=== PATIENT | male | born 1965 | race Caucasian/White ===

== ENCOUNTER → 2018-06-27 19:21 | Outpatient (CLI) | payer OTHER | END | disposition home or self-care (01) | LOC: D.CT 19:21 | DX: K52.9 Noninfective gastroenteritis and colitis, unspecified (principal) ==

== ENCOUNTER → 2018-07-01 18:28 | Outpatient (CLI) | payer OTHER | END | disposition home or self-care (01) | LOC: D.LABREF 18:28 | DX: R31.9 Hematuria, unspecified (principal) ==

== ENCOUNTER → 2018-08-12 14:03 | Outpatient (CLI) | payer OTHER | END | disposition home or self-care (01) | LOC: D.MRI 14:03 | PROVIDERS: ATTEND Orthopaedic Surgery | DX: M87.059 Idiopathic aseptic necrosis of unspecified femur (principal) ==

== ENCOUNTER 2018-09-06 07:50 | Day surgery (SDC) | payer OTHER ==
[2018-09-01 13:21] LABS: HEMATOCRIT 43.8 % (42.0-54.0); HEMOGLOBIN 15.8 g/dL (13.5-17.5); MCH 33.5 pg (26.0-34.0); MCHC 36.1 g/dL (31.0-37.0); MCV 92.8 fL (80.0-100.0); MEAN PLATELET VOLUME 10.1 fL (7.4-10.4); RBC 4.72 10x6/uL (4.20-6.10); WBC 8.2 10x3/uL (4.8-10.8)
[~2018-09-06] VITALS: Ht 175.3 cm; Wt 81.6 kg
[~2018-09-06 07:50] MED LIST: LIPITOR20 MG PO; LOSARTAN/HCT TAB 100 PO; XANAX0.5 MG PO
[2018-09-06 08:47] VITALS: BP 105/65; Ht 175.3 cm; Wt 81.6 kg
[2018-09-06] MEDS ORDERED: PERCOCET 5-3251 TAB PO (12:40)
[2018-09-06] MEDS ORDERED: BAYER CHEWABLE81 MG PO (12:41)
--- NOTE | 2018-09-06 13:25 | NUR ---
PT ARRIVED TO UNIT VIA STRETCHER AT 1310. STATES HAVING PAIN OF /. DENIES NEEDS AT THIS TIME. WILL CONTINUE TO MONITOR.
--- NOTE | 2018-09-06 14:14 | OP ---
PATIENT NAME: YUMIKO LINN MEDICAL RECORD: [id number] :67 LOCATION:[facility] ADMISSION DATE: SURGEON: FREDO ROBERTS DO DATE OF OPERATION: 09/06/2018 PROCEDURE PERFORMED: Right hip femoral head core decompression with injection of BioCure and platelet rich plasma and bone marrow aspirate from the right iliac crest. PREOPERATIVE DIAGNOSIS: Avascular necrosis of the right femoral head. POSTOPERATIVE DIAGNOSIS: Avascular necrosis of the right femoral head. INDICATIONS: Mr. Linn is a 53-year-old male who presented to my office after an incidental finding of AVN on his bilateral hips after having a CT of his pelvis and abdomen. He had had hip pain for some time and did not why. He was a smoker for a long time and is likely the cause, but this is unknown to be the exact source. He had no other risk factors for it. I informed him that we could do an MRI and see how bad it was. It did not appear to be collapsed on the CT. MRI was done and indeed was not collapsed. The right had a slightly larger lesion than the left, it was 2.7 x 3 cm and he was aware that, wanted to do the right one first. I told him that we would aspirate from his iliac crest on the right and that would be painful. I told him the cord compression too and he would be nonweightbearing for a couple of weeks with the hopes that it would regenerate bone in his femoral head. He was okay with that including the risk of infection, bleeding, damage to nerve and vessel, and blood clots and even . He signed the consent. SURGEON: Fredo Roberts DO FARM MACHINE OPERATOR: Darian Caldera, certified first assistant manager. Darian assisted with closing and throughout the procedure. DESCRIPTION OF PROCEDURE: The patient was taken to the operative suite and after given a block by anesthesia in the preoperative area, the patient was put to sleep on the regular table and given general anesthetic. LMA was placed. Two grams Ancef were given to the patient. He was then placed on the [place] table and positioned. Once positioned, the right hip was prepped and draped in sterile fashion. A timeout was performed, everyone was in agreement with the correct side, site, patient and procedure. A small incision was then made over the right iliac crest and a core Jamshidi needle was used into the iliac crest and aspirated 60 cc of bone marrow. This was passed off and spun down with a BioCure to PRP, 5 cc were obtained from each of the spin down. During that time, the hip was x-rayed in AP and lateral and marked to get into the necrotic spot of the femoral head. Once this was confirmed on AP and lateral, a small incision was made on the lateral aspect of the femur and the 2.4 drill was put up into the femoral head right where the necrotic area was and then 4.5 reamer acorn was used over that to go up into the spot. Then, a 6.0 trocar was malleted into that site. This was confirmed on AP and lateral to be in good position. Once this was in good position, the injection was inserted and through the trocar, a plunger was used to force it into the space that had been created. This was done several times as some of the product came out of the trocar, which was caught in a specimen cup and redrawn up and reaspirated. Once the total contents of 10 cc was injected in, then the plunger went through a final time without any drawback. The trocar was removed. The 2 incision sites OPERATIVE REPORT [id number] TYLORYUMIKO were then injected with 1% lidocaine with epinephrine 10 mL in each site. The incisions were closed over the iliac crest with 2-0 Vicryl and then 4-0 Monocryl ran on the skin and then on the small incision over the lateral hip, 4-0 Monocryl in inverted interrupted fashion on the skin. I then placed dressings on them. The patient was awakened and taken to recovery in stable condition. Blood loss was minimal. COMPLICATIONS: None. TRANSINT:[id number] Voice Confirmation ID: [id number] DOCUMENT ID: [id number] FREDO ROBERTS DO at 1414 CC: [id number] DICTATION DATE: 09/06/18 1249 EXTENSION COURSE COUNSELOR: 09/06/18 1324 [facility] [address] [id number]
--- NOTE | 2018-09-06 14:44 | NUR ---
1425 DC INSTS GIVEN VOICED UNDERSTANDING RX'S GIVEN GETTING DRESSED RELEASED IN WC WITH ESCORTG.
== END 2018-09-06 14:30 | disposition home or self-care (01) ==
LOC: D.OPS 07:50 → D.PAN 13:45 → D.OPS 13:45
PROVIDERS: Anesthesiology; ATTEND Orthopaedic Surgery
DX: M87.9 Osteonecrosis, unspecified (principal)
CPT/HCPCS: 0232T; 38221